=== PATIENT | female | born 1935 | race Hispanic/Latino ===

== ENCOUNTER → 2020-08-15 | Day surgery (SDC) | payer MEDICARE ==
[~2020-08-15] MED LIST: AMLODIPINE BESYL5 MG PO; LEVOTHYROXINE100 MC2 PO; OR PHACO EYE KIT ONE; PREOP PHACO EYE KIT ONE; PROPAFENONE HC150 MG PO
[2020-08-15 14:54] VITALS: BP 138/69
== END | disposition home or self-care (01) ==
LOC: OR 11:58
PROVIDERS: ATTEND Ophthalmology
DX: H25.12 Age-related nuclear cataract, left eye (principal); C22.8 Malignant neoplasm of liver, primary, unspecified as to type; I10 Essential (primary) hypertension; E03.9 Hypothyroidism, unspecified; F32.9 Major depressive disorder, single episode, unspecified; Z88.0 Allergy status to penicillin; Z01.812 Encounter for preprocedural laboratory examination; Z20.822 Contact with and (suspected) exposure to COVID-19
CPT/HCPCS: 66984; U0002; V2632

== ENCOUNTER 2024-04-25 12:58 | Emergency (ER) | payer MEDICARE ==
[~2024-04-25] VITALS: Ht 149.9 cm; Wt 83.7 kg
[~2024-04-25 12:58] MED LIST changes: -OR PHACO EYE KIT ONE; -PREOP PHACO EYE KIT ONE
[2024-04-25] MEDS ORDERED: LEVOTHYROXINE75 MCG (13:46)
[2024-04-25] MEDS ORDERED: DULOXETINE HCL20 MG (13:46)
[2024-04-25] MEDS ORDERED: OLMESARTAN MEDO40 MG (13:46)
[2024-04-25] MEDS ORDERED: NEBIVOLOL HCL5 MG (13:46)
[2024-04-25] MEDS ORDERED: OMEPRAZOLE20 MG (13:46)
[2024-04-25] MEDS ORDERED: SODIUM CHLORIDE FLUSH 10 ML SYR IV PRN (14:00)
[2024-04-25 14:05] LABS: BASOPHILS % 0.5 % (0.0-1.0); EOSINOPHILS % 0.2 % (0.0-6.0); HEMATOCRIT 40.9 % (34.2-44.1); HEMOGLOBIN 13.6 g/dL (12.0-16.0); LYMPHOCYTES # (AUTO) 1.2 (1.0-3.2); LYMPHOCYTES % 26.7 % (18.0-39.1); MEAN CORPUSCULAR HEMOGLOBIN 34.5 pg (28-32); MEAN CORPUSCULAR HGB CONC 33.3 g/dL (31-35); MEAN CORPUSCULAR VOLUME 103.8 fL (81-99); MONOCYTES # (AUTO) 0.4 (0.2-0.8); MONOCYTES % 8.7 % (4.4-11.3); NEUTROPHILS # (AUTO) 2.8 (2.1-6.9); NEUTROPHILS % 63.7 % (38.7-80.0); PLATELET COUNT 135 x10e3/uL (140-360); RED BLOOD COUNT 3.94 x10e6/uL (3.6-5.1); WHITE BLOOD COUNT 4.38 x10e3/uL (4.8-10.8)
[2024-04-25 14:24] LABS: ALBUMIN 2.2 g/dL (3.5-5.0); ALBUMIN/GLOBULIN RATIO 0.4 (0.8-2.0); ANION GAP 9.9 mmol/L (8-16); BILIRUBIN,TOTAL 1.6 mg/dL (0.2-1.2); CALCIUM 8.3 mg/dL (8.4-10.2); CREATININE, SERUM 0.82 mg/dL (0.57-1.11); POTASSIUM 4.9 mmol/L (3.5-5.1); TOTAL PROTEIN 7.1 g/dL (6.5-8.1)
[2024-04-25 14:30] LABS: TROPONIN I 0.018 ng/mL (0-0.300)
[2024-04-25] MEDS ORDERED: IOPAMIDOL 370 MG/ML 100 ML INFUS..BTL INJ ONE (14:49)
[2024-04-25 16:01] VITALS: PULSE 78; RESP 16; TEMP 98.7; O2SAT 97
== END 2024-04-25 18:32 | disposition other institution (70) ==
LOC: ER 13:26
DX: J90 Pleural effusion, not elsewhere classified (principal); C22.8 Malignant neoplasm of liver, primary, unspecified as to type; R18.8 Other ascites; M79.89 Other specified soft tissue disorders; I10 Essential (primary) hypertension; E78.5 Hyperlipidemia, unspecified; E03.9 Hypothyroidism, unspecified; K21.9 Gastro-esophageal reflux disease without esophagitis; F41.9 Anxiety disorder, unspecified; R94.31 Abnormal electrocardiogram [ECG] [EKG]
CPT/HCPCS: 36415; 71045; 71260; 74177; 80053; 83690; 83880; 84484; 85025; 93005; 94760; 99284; Q9967